=== PATIENT | male | born 1995 | race Caucasian/White ===

== ENCOUNTER 2021-10-29 23:10 | Emergency (ER) | payer BC, SELFPAY ==
--- NOTE | ~2021-10-29 | XR_ITS ---
EXAMINATION: XR foot RT min 3V DATE: 10/30/2021 01:45 INDICATION: Right foot injury. TECHNIQUE: 3 views of right foot were obtained. COMPARISON: None. FINDINGS: There is mild hallux valgus. No fracture. Joint spaces are normal. IMPRESSION: 1. Mild hallux valgus. Reviewed, dictated and finalized at location A. IMPRESSION: 1. Mild hallux valgus.
--- NOTE | ~2021-10-29 | XR_ITS ---
EXAMINATION: XR ankle RT min 3V DATE: 10/30/2021 01:45 INDICATION: Right ankle injury. TECHNIQUE: 3 views of right ankle were obtained. COMPARISON: None. FINDINGS: Bone alignment is normal. No fracture. Joint spaces are well maintained. There is ankle sof t tissue swelling. IMPRESSION: 1. No fracture. Reviewed, dictated and finalized at location A. IMPRESSION: 1. No fracture.
[2021-10-29 23:15] VITALS: BP 147/66; PULSE 86; RESP 18; TEMP 37.1; O2SAT 100
--- NOTE | 2021-10-30 00:22 | ED.LOWEXIN ---
HPI - Extremity Injury (Lower) General Chief Complaint: Extremity Injury, Lower Stated Complaint: right ankle injury Time Seen by Provider: 10/29/21 23:19 History of Present Illness HPI Narrative: 26-year-old male presents the emergency room complaints of right ankle and right foot pain. Patient states he had been drinking tonight, and he slipped on a hill twisting his right ankle. Denies any other injuries. Related Data Allergies Allergy/AdvReac Type Severity Reaction Status Date / Time No Known Allergies Allergy Verified 10/30/21 00:18 Review of Systems Review of Systems: CONSTITUTIONAL: Denies fever, chills, or sweats. EYES: Denies visual changes, redness, or discharge. ENT: Denies rhinorrhea, congestion, sore throat, or otalgia. CARDIOVASCULAR: Denies chest pain, palpitations, or edema. RESPIRATORY: Denies cough or dyspnea. GASTROINTESTINAL: Denies abdominal pain, nausea, vomiting, or diarrhea. GENITOURINARY: Denies dysuria or hematuria. SKIN: Denies rash or itching. MUSCULOSKELETAL: Reports right ankle and right foot pain NEUROLOGIC: Denies headache, numbness, dizziness, or weakness. PSYCHIATRIC: Denies anxiety or depression. Exam Narrative: GENERAL: Well-appearing, well-nourished, no physical limitations, and in no acute distress. HEAD: Normocephalic, atraumatic. EYES: Conjunctivae normal, PERRLA and EOMI. CHEST: Clear to auscultation. No respiratory distress. No wheezes rales or rhonchi. No tenderness. HEART: Regular rate and rhythm. No murmur heard. Normal peripheral pulses. BACK: No CVA tenderness; No cervical/thoracic/lumbar tenderness, step-offs, bony abnormality; FROM EXTREMITIES: Lower extremity: Tenderness and soft tissue swelling extending from the right lateral malleolus to the anterior talofibular ligament, no joint laxity, neurovascular is intact distally SKIN: Warm, dry, no rash. No noted wounds NEURO: No focal deficits. Alert and oriented x3. MAEW. CN's II-XI intact bilaterally, normal gait PSYCH: Cooperative. Normal mood and affect. Course Vital Signs Vital signs: Vital Signs Temperature 37.1 C 10/29/21 23:15 Pulse Rate 86 10/29/21 23:15 Respiratory Rate 18 10/29/21 23:15 Blood Pressure 147/66 H 10/29/21 23:15 Pulse Oximetry 100 10/29/21 23:15 Oxygen Delivery Room Air 10/29/21 23:15 Temperature 37.1 C 10/29/21 23:15 Pulse Rate 86 10/29/21 23:15 Respiratory Rate 18 10/29/21 23:15 Blood Pressure 147/66 H 10/29/21 23:15 Pulse Oximetry 100 10/29/21 23:15 Oxygen Delivery Room Air 10/29/21 23:15 MDM - Extremity Injury (Lower) Imaging Data My impression: Right ankle right foot: Bunion Discharge Plan Discharge Clinical Impression: Ankle sprain and strain Patient Disposition: Home, Self-Care Condition: Stable Instructions: Antibiotic Form Additional Instructions: Recommend Tylenol and ibuprofen as needed for pain. May apply ice for the first 48 hours after the injury and then replaced with heat. Your x-rays were read by myself and the ER physician, you may get a call from the radiologist tomorrow if they suspect any additional injury. Otherwise limit activity for the next 2 to 4 weeks. Follow-up/Referrals: Magen Bass MD [Physician] - PHYSICIAN NOT ON STAFF,NONSTAFF [Primary Care Provider] - Time of Disposition: 00:31
[2021-10-30 00:23] VITALS: BP 142/87; PULSE 76; RESP 16; TEMP 36.4; O2SAT 100
[2021-10-30 00:35] VITALS: BP 145/89; PULSE 95; RESP 16; O2SAT 97
== END 2021-10-30 00:36 | disposition home or self-care (01) ==
PROVIDERS: Emergency Provider Nurse Practitioner Family
DX: S93.401A Sprain of unspecified ligament of right ankle, initial encounter (principal); S96.911A Strain of unspecified muscle and tendon at ankle and foot level, right foot, initial encounter; M20.11 Hallux valgus (acquired), right foot; X50.9XXA Other and unspecified overexertion or strenuous movements or postures, initial encounter
CPT/HCPCS: 73610; 73630; 99283